=== PATIENT | female | born 1965 | race Caucasian/White ===

== ENCOUNTER → 2017-06-10 | Outpatient (CLI) | payer OTHER ==
[~2017-06-10] MED LIST: CLONAZEPAM PO; FLEXERIL10 MG PO; MEDROL 4MG DOSPA4 MG PO; NORCO 325 MG-51 TAB PO; PERCOCET 5/321 UDTAB PO; ZOLOFT50 MG PO
== END ==
LOC: MC.RAD 08:00
DX: Z12.31 Encounter for screening mammogram for malignant neoplasm of breast (principal)

== ENCOUNTER → 2018-05-19 | Outpatient (CLI) | payer BC | LOC: COL.RAD 09:54 | DX: M47.812 Spondylosis without myelopathy or radiculopathy, cervical region (principal); M99.71 Connective tissue and disc stenosis of intervertebral foramina of cervical region; E04.1 Nontoxic single thyroid nodule; R91.1 Solitary pulmonary nodule | CPT/HCPCS: Q9967 ==

== ENCOUNTER → 2018-05-25 | Outpatient (CLI) | payer BC | LOC: COL.RAD 08:00 | DX: E04.2 Nontoxic multinodular goiter (principal) ==

== ENCOUNTER → 2018-06-02 | Outpatient (CLI) | payer BC ==
[~2018-06-02] VITALS: Ht 172.7 cm; Wt 59.4 kg
[~2018-06-02] MED LIST changes: -CLONAZEPAM PO; +ESTRACE0.5 MG PO; +KLONOPIN 0.5MG0.5 MG PO; +ZOLOFT 50MG50 MG PO; -ZOLOFT50 MG PO; +ZYRTEC 10MG10 MG PO
[2018-06-02 09:15] VITALS: BP 110/79; PULSE 66
[2018-06-02 10:20] VITALS: BP 114/85; PULSE 59
== END ==
LOC: COL.RAD 08:46
DX: D34 Benign neoplasm of thyroid gland (principal)

== ENCOUNTER → 2018-07-22 | Outpatient (CLI) | payer BC | LOC: MC.RAD 07:26 | DX: N60.01 Solitary cyst of right breast (principal); Z80.3 Family history of malignant neoplasm of breast ==

== ENCOUNTER → 2019-09-23 | Outpatient (CLI) | payer BC | LOC: MC.RAD 14:34 | DX: Z12.31 Encounter for screening mammogram for malignant neoplasm of breast (principal) ==

== ENCOUNTER → 2021-07-31 | Outpatient (CLI) | payer BC | LOC: MC.RAD 09:07 | DX: Z12.31 Encounter for screening mammogram for malignant neoplasm of breast (principal); N64.89 Other specified disorders of breast ==

== ENCOUNTER → 2021-08-06 | Outpatient (CLI) | payer BC | LOC: MC.RAD 10:59 | DX: R92.2 Inconclusive mammogram (principal); N64.89 Other specified disorders of breast ==

== ENCOUNTER 2021-12-05 11:34 | Emergency (ER) | payer BC ==
[~2021-12-05] VITALS: Ht 172.7 cm; Wt 56.8 kg
[2021-12-05 11:36] VITALS: TEMP 97.5
[2021-12-05] MEDS ORDERED: PERCOCET 325 MG1 TA2 PO (12:52)
[2021-12-05 13:31] VITALS: BP 126/76; PULSE 48
== END 2021-12-05 13:31 | disposition home or self-care (01) ==
LOC: COL.ER 11:34
DX: S42.202A Unspecified fracture of upper end of left humerus, initial encounter for closed fracture (principal); F41.9 Anxiety disorder, unspecified; F32.A Depression, unspecified; Z79.899 Other long term (current) drug therapy; W01.0XXA Fall on same level from slipping, tripping and stumbling without subsequent striking against object, initial encounter; Y93.01 Activity, walking, marching and hiking
CPT/HCPCS: J2060; J2270; J2405

== ENCOUNTER → 2022-07-30 | Outpatient (CLI) | payer BC ==
[~2022-07-30] MED LIST changes: +PERCOCET 325 MG1 TA2 PO
== END ==
LOC: COL.RAD 07:03
DX: R10.11 Right upper quadrant pain (principal); I31.3 Pericardial effusion (noninflammatory)